=== PATIENT | male | born 2000 | race African-American/Black ===

== ENCOUNTER 2022-08-09 22:31 | Emergency (ER) | payer OTHER, SELFPAY ==
[2022-08-09] MEDS ORDERED: CEFAZOLIN 2 GM VIAL ONE (22:38)
[2022-08-09] MEDS ORDERED: Boostrix 0.5 ML (Tdap) VIAL (>/=7 yrs of age) ONE (22:38)
[2022-08-09] MEDS ORDERED: Ketorolac Tromethamine 30 MG/ML VIAL ONE (23:58)
== END 2022-08-10 00:12 | disposition home or self-care (01) ==
LOC: ERS 22:31
DX: S81.032A Puncture wound without foreign body, left knee, initial encounter (principal); S71.131A Puncture wound without foreign body, right thigh, initial encounter; W34.00XA Accidental discharge from unspecified firearms or gun, initial encounter; Z23 Encounter for immunization
CPT/HCPCS: 90471; 90715; 96365; 96375; G0390; J1885